=== PATIENT | female | born 1960 | race Caucasian/White ===

== ENCOUNTER 2016-11-14 17:02 | Emergency (ER) | payer SELFPAY ==
[~2016-11-14] VITALS: Ht 170.2 cm; Wt 105.7 kg
--- NOTE | 2016-11-14 17:50 | Emergency Room Report ---
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 N Clinical Suspician of Infection? N Mental Status: 1 - Regular (Normal Baseline) Sepsis Risk:Low Sepsis Risk Have you (or family members/close friends) recently traveled outside the [place]? N If Yes, where/when: Have you had exposure to infectious disease within the past month? N TB? Other? Specify: Source patient, RN notes reviewed, family, RN/MD Exam Limitations no limitations Comment This is a 56-year-old lady presenting to the emergency room with RIGHT ankle pain and swelling after falling down stairs just a couple of hours prior to arrival. She is from out of [facility] ([place]). Patient is denying any other associated injuries at this time. Patient is unable to bear weight on the RIGHT lower extremity. She has taken [id number] Motrin and Tylenol, without any significant relief. ALLERGIES Coded Allergies: No Known Allergies (11/14/16) History Medical History General CAD? No Angina: No UT: No Hypertension? Yes Hyperlipidemia? No CHF? No DVT? No PE? No COPD? No Asthma? Yes Anemia? No GERD? No Gastric ulcers? No GI Bleed? No Hernia? No Thyroid Problems? No Hypothyroidism? No CVA? No Seizures? No Diabetes? No Renal Insuffiency? No End Stage Renal Disease? No UTI? No Stones? No GB Disease: No Nephritic Syndrome? No Asplenia? No Hepatitis? No Sickle Cell Disease? No Arthritis? Yes Migraines? No Cataracts? No Glaucoma? No MRSA? No HIV? No TB? No Anxiety? No Depression? No Cancer? No More? 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 No: respiratory distress. Lung Sounds bilateral: normal breath sounds, lungs clear. Cardiovascular normal exam, regular rate/rhythm, no peripheral edema, no gallop, no JVD, no murmur, no rub, normal peripheral pulses Gastrointestinal normal bowel sounds, normal exam, non tender, soft, no organomegaly Extremities RIGHT ankle swollen, deformed, very tender to palpation, range of motion limited due to pain. Neurologic alert, cat and dog bather II-XII nml as tested, normal exam, oriented x 3 Mental status normal mood/affect Skin intact, normal color, warm/dry Medical Decision Making LABS/Meds/Orders Pt receiving controlled substance in ED? Yes Tommy was queried for this patient? No Reason not queried - hospital network issues Risks/benefits of using a controlled substance for treatment were discussed w/pt by me Comment Patient instructed to follow-up with Dr. David Chris in the morning, remain nonweightbearing on the RIGHT lower extremity, while using crutches. She will need to keep her RIGHT ankle elevated, iced and take the pain medications prescribed as instructed. Patient unsure if she will follow-up with Dr. Chris locally or just try to drive back to [place] where she is from, in order to seek orthopedic treatment closer to home. Results/Orders Orders Procedure Date/time Status STABILIZE JOINT 11/14 1810 Active XRAY/CT/US XRAY/CT/US XRAY ankle (right) XR interpretation by reviewed by me, discussed w/radiologist Xray Results bimalleolar RIGHT ankle fracture Procedures Orthopedic/Inj/Splint Ortho Proc/Injections/Splints Risks/benefits discussed with pt/guardian? Yes Location RIGHT ankle Hand-Made Type orthoglass (sugar tong/posterior leg) Pre-Proc Neuro Vasc Exam normal Post-Proc Neuro Vasc Exam normal Departure Departure Time of Disposition 1810 Disposition DC Home or Self Care(routine) Clinical Impression Primary Impression: Bimalleolar fracture of right ankle Qualifiers: Encounter type: initial encounter Fracture type: closed Qualified Code: S82.841A - Displaced bimalleolar fracture of right lower leg, initial encounter for closed fracture Condition STABLE Referrals KAREN GUTIERREZ, AYAN HAY: Tomorrow-Call Office please call the office tomorrow at 09:00am in order to schedule a walk in office visit with the orthopedic surgeon Patient Instructions DI for Ankle Fracture Additional Instructions Please keep RIGHT ankle elevated, iced, no weightbearing on the RIGHT lower extremity, take the pain medications as needed for pain. Call Dr. Palafox's office in the morning at 9 AM in order to be schedule an office visit. Discharge Counseling Counseled pt/family regarding diagnosis, test results, medications/RX, home care, follow up needs Comment Please keep RIGHT ankle elevated, iced, no weightbearing on the RIGHT lower extremity, take the pain medications as needed for pain. Call Dr. Palafox's office in the morning at 9 AM in order to be schedule an office visit. Prescriptions Current Visit Scripts HYDROCODONE/ACETAMINOPHEN (Lortab 10-325 MG Tablet) 1 TAB PO QIDP PRN pain #12 TAB ED Critical Care Critical Care No at 0048
--- NOTE | 2016-11-14 17:50 | Emergency Room Report ---
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 N Clinical Suspician of Infection? N Mental Status: 1 - Regular (Normal Baseline) Sepsis Risk:Low Sepsis Risk Have you (or family members/close friends) recently traveled outside the [place]? N If Yes, where/when: Have you had exposure to infectious disease within the past month? N TB? Other? Specify: Source patient, RN notes reviewed, family, RN/MD Exam Limitations no limitations Comment This is a 56-year-old lady presenting to the emergency room with RIGHT ankle pain and swelling after falling down stairs just a couple of hours prior to arrival. She is from out of [facility] ([place]). Patient is denying any other associated injuries at this time. Patient is unable to bear weight on the RIGHT lower extremity. She has taken [id number] Motrin and Tylenol, without any significant relief. ALLERGIES Coded Allergies: No Known Allergies (11/14/16) History Medical History General CAD? No Angina: No MA: No Hypertension? Yes Hyperlipidemia? No CHF? No DVT? No PE? No COPD? No Asthma? Yes Anemia? No GERD? No Gastric ulcers? No GI Bleed? No Hernia? No Thyroid Problems? No Hypothyroidism? No CVA? No Seizures? No Diabetes? No Renal Insuffiency? No End Stage Renal Disease? No UTI? No Stones? No GB Disease: No Nephritic Syndrome? No Asplenia? No Hepatitis? No Sickle Cell Disease? No Arthritis? Yes Migraines? No Cataracts? No Glaucoma? No MRSA? No HIV? No TB? No Anxiety? No Depression? No Cancer? No More? 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 No: respiratory distress. Lung Sounds bilateral: normal breath sounds, lungs clear. Cardiovascular normal exam, regular rate/rhythm, no peripheral edema, no gallop, no JVD, no murmur, no rub, normal peripheral pulses Gastrointestinal normal bowel sounds, normal exam, non tender, soft, no organomegaly Extremities RIGHT ankle swollen, deformed, very tender to palpation, range of motion limited due to pain. Neurologic alert, addictions counselor II-XII nml as tested, normal exam, oriented x 3 Mental status normal mood/affect Skin intact, normal color, warm/dry Medical Decision Making LABS/Meds/Orders Pt receiving controlled substance in ED? Yes Tommy was queried for this patient? No Reason not queried - hospital network issues Risks/benefits of using a controlled substance for treatment were discussed w/pt by me Comment Patient instructed to follow-up with Dr. David Chris in the morning, remain nonweightbearing on the RIGHT lower extremity, while using crutches. She will need to keep her RIGHT ankle elevated, iced and take the pain medications prescribed as instructed. Patient unsure if she will follow-up with Dr. Chris locally or just try to drive back to [place] where she is from, in order to seek orthopedic treatment closer to home. Results/Orders Orders Procedure Date/time Status STABILIZE JOINT 11/14 1810 Active XRAY/CT/US XRAY/CT/US XRAY ankle (right) XR interpretation by reviewed by me, discussed w/radiologist Xray Results bimalleolar RIGHT ankle fracture Procedures Orthopedic/Inj/Splint Ortho Proc/Injections/Splints Risks/benefits discussed with pt/guardian? Yes Location RIGHT ankle Hand-Made Type orthoglass (sugar tong/posterior leg) Pre-Proc Neuro Vasc Exam normal Post-Proc Neuro Vasc Exam normal Departure Departure Time of Disposition 1810 Disposition DC Home or Self Care(routine) Clinical Impression Primary Impression: Bimalleolar fracture of right ankle Qualifiers: Encounter type: initial encounter Fracture type: closed Qualified Code: S82.841A - Displaced bimalleolar fracture of right lower leg, initial encounter for closed fracture Condition STABLE Referrals KAREN GUTIERREZ, AYAN HAY: Tomorrow-Call Office please call the office tomorrow at 09:00am in order to schedule a walk in office visit with the orthopedic surgeon Patient Instructions DI for Ankle Fracture Additional Instructions Please keep RIGHT ankle elevated, iced, no weightbearing on the RIGHT lower extremity, take the pain medications as needed for pain. Call Dr. Palafox's office in the morning at 9 AM in order to be schedule an office visit. Discharge Counseling Counseled pt/family regarding diagnosis, test results, medications/RX, home care, follow up needs Comment Please keep RIGHT ankle elevated, iced, no weightbearing on the RIGHT lower extremity, take the pain medications as needed for pain. Call Dr. Palafox's office in the morning at 9 AM in order to be schedule an office visit. Prescriptions Current Visit Scripts HYDROCODONE/ACETAMINOPHEN (Lortab 10-325 MG Tablet) 1 TAB PO QIDP PRN pain #12 TAB ED Critical Care Critical Care No at 0048
--- OUTSIDE RECORDS SUMMARY | 2016-11-14 17:57 | External Medical Summary Rpt ---
Demographics Preferred Language Unknown Marital Status Unknown Christianity Affiliation Unknown Race Unknown Ethnic Group Unknown Author Author [employer] Donnelly, [employer] Organization [employer] Address Unknown Phone Unavailable
--- OUTSIDE RECORDS SUMMARY | 2016-11-14 17:57 | External Medical Summary Rpt ---
Author Author [employer] Organization [employer] Address Unknown Phone Unavailable Purpose Continuity of Care Document - through 2016
--- OUTSIDE RECORDS SUMMARY | 2016-11-14 17:57 | External Medical Summary Rpt ---
Demographics Preferred Language Kyrgyz Marital Status Unknown Pentecostalism Affiliation Unknown Race Unknown Ethnic Group Unknown Author Author , Organization [employer] Address Unknown Phone Unavailable Purpose Continuity of Care Document - through 2016
--- OUTSIDE RECORDS SUMMARY | 2016-11-14 17:57 | External Medical Summary Rpt ---
Demographics Preferred Language Amharic Marital Status Unknown Orthodoxy Affiliation Unknown Race Unknown Ethnic Group Unknown Author Author , Organization [employer] Address Unknown Phone Unavailable Purpose Continuity of Care Document - through 2016
--- OUTSIDE RECORDS SUMMARY | 2016-11-14 17:57 | External Medical Summary Rpt ---
Demographics Preferred Language Korean Marital Status Unknown Gnosticist Affiliation Unknown Race Unknown Ethnic Group Unknown Author Author , Organization [employer] Address Unknown Phone Unavailable Purpose Continuity of Care Document - through 2016 Immunization No patient found.
--- OUTSIDE RECORDS SUMMARY | 2016-11-14 17:57 | External Medical Summary Rpt ---
Demographics Preferred Language Unknown Marital Status Unknown Nondenominational Affiliation Unknown Race Unknown Ethnic Group Unknown Author Author [employer] Donnelly, [employer] Organization [employer] Address Unknown Phone Unavailable
--- OUTSIDE RECORDS SUMMARY | 2016-11-14 17:57 | External Medical Summary Rpt ---
Demographics Preferred Language Yi Marital Status Unknown Taoism Affiliation Unknown Race Unknown Ethnic Group Unknown Author Author , Organization [employer] Address Unknown Phone Unavailable Purpose Continuity of Care Document - through 2016 Immunization No patient found.
--- NOTE | 2016-11-14 18:00 | RADIOLOGY REPORT PS360 ---
ANKLE-[id number] VIEWS Ordering Physician: Ulises Terrell MD Patient Age: 56 years: Female HISTORY: pain, s/p injurypain right ankle TECHNIQUE: 3 views right ankle FINDINGS: bimalleolar fracture Spiral fracture distal fibula extends obliquely from the distal shaft laterally passing to the distal metaphysis of fibula interosseous articulation. There is mild 4 mm lateral offset of the distal fracture fragment at its lateral aspect.lMinor angulation with apex of this fracture directed anteriorly seen on lateral view \ Acute Fracture transversing the base the medial malleolus. With this the tip of the medial malleolus is displaced ~4 mm lateral, along with, accompanying the slight lateral displacement of talus. Plantar calcaneal spur noted. Calcaneus intact subtalar joint unremarkable on these views. Prominent soft tissue swelling about the ankle most evident medial IMPRESSION: Bimalleolar fracture right ankle, with associated slight lateral displacement of the talus.. Tip of medial malleolus accompanies the talus lateral displacement. Prominent soft tissue swelling about the ankle
[2016-11-14] MEDS ORDERED: LORTAB 10/3251 TAB PO (18:14)
[2016-11-14 18:32] VITALS: BP 141/85
== END 2016-11-14 18:30 | disposition home or self-care (01) ==
LOC: ER 17:02
PROC: 2W3SX1Z Immobilization of Right Foot using Splint (ICD-10-PCS; principal; 2016-11-14)
DX: S82.841A Displaced bimalleolar fracture of right lower leg, initial encounter for closed fracture (principal); W10.8XXA Fall (on) (from) other stairs and steps, initial encounter; Y92.89 Other specified places as the place of occurrence of the external cause